=== PATIENT | female | born 1975 | race Caucasian/White ===

== ENCOUNTER 2016-09-17 09:57 | Emergency (ER) | payer OTHER ==
[~2016-09-17] VITALS: Ht 149.9 cm; Wt 50.0 kg
[2016-09-17] MEDS ORDERED: FD GUARD (10:05)
[2016-09-17 11:13] LABS: PH 6 (5-8); SQUAMOUS EPITHELIAL 0-2 /hpf; URINE APPEARANCE Clear; URINE BACTERIA None Seen /hpf; URINE BILIRUBIN Negative (NEGATIVE); URINE BLOOD Negative (NEGATIVE); URINE COLOR Straw; URINE GLUCOSE Negative (NEGATIVE); URINE KETONE Negative (NEGATIVE); URINE RBC 0-2 /hpf; URINE UROBILINOGEN Negative (NEGATIVE); URINE WBC 0-2 /hpf
[2016-09-17] MEDS ORDERED: ZOFRAN 4MG T4 MG/TAB PO (12:06)
== END 2016-09-17 12:10 | disposition home or self-care (01) ==
LOC: COL.ER
PROVIDERS: Physician Assistant Medical
DX: R11.0 Nausea (principal); Z90.49 Acquired absence of other specified parts of digestive tract; Z98.890 Other specified postprocedural states
CPT/HCPCS: J7030